=== PATIENT | male | born 1940 ===

== ENCOUNTER 2018-07-19 06:17 | Day surgery (SDC) | payer MEDICARE ==
[2018-07-18 11:49] VITALS: BMI 23.3
[2018-07-19 06:53] LABS: BASO # 0.05 K/mm3 (0.0-2.0); EOS # 0.1 (0.0-0.7); EOS % 2.1 % (1.5-5.0); GRAN # 2.84 (1.4-6.5); GRAN % 58.4 % (50.0-68.0); HEMOGLOBIN 13.7 g/dL (14.0-18.0); LYMPH # 1.4 (1.2-3.4); LYMPH % 28.6 % (22.0-35.0); MEAN CELL VOLUME 80.5 fl (80.0-105.0); MEAN CORPUSCULAR HGB CONC 36.1 g/dl (31.0-37.0); MONO # 0.5 (0.1-0.6); MONO % 9.9 % (1.0-6.0); RBC 4.72 10^6/uL (3.5-6.1); RED CELL DISTRIBUTION WIDTH 12.3 % (11.5-14.5); WHITE BLOOD COUNT 4.9 10^3/ul (4.5-11.0)
[2018-07-19 07:02] LABS: CALCIUM 9.1 mg/dL (8.4-10.5)
[2018-07-19] MEDS ORDERED: Propofol 10 mg/ml Inj (20 ML) ONE ×2 (09:10→09:27)
[2018-07-19] MEDS ORDERED: cefTRIAXone (Rocephin) 1 gm Inj ONE (09:21)
[2018-07-19] MEDS ORDERED: Lactated Ringer's 1,000 ML IV SCH (09:45)
[2018-07-19 10:41] VITALS: BP 133/74; PULSE 63; RESP 20; TEMP 98.3; O2SAT 100
--- NOTE | 2018-07-19 12:08 | CARD ---
APPROVED REPORT Date of service: 07/19/2018 EKG Measurement Heart [id number] <Conclusion> Normal sinus rhythm Left axis deviation Inferior infarct, age undetermined NSSTW changes
--- NOTE | 2018-07-20 11:30 | PN ---
Copied To: Bobby Lai MD Attending MD: Bobby Lai MD DATE: 07/19/2018 UROLOGY IMMEDIATE POSTOP NOTE SUBJECTIVE: See the history and physical and the operative note. The patient is in the hospital for an elevated PSA for prostate biopsy. In the immediate postop period, the patient's vital signs remained stable. He is in the same-day unit. He is status post a prostate ultrasound, prostate biopsy. Antibiotic prophylaxis used. The patient is doing well. The plan will be for outpatient management. We will send the patient home with analgesic, antibiotic and we will send him home with Flomax. Then, further plans will follow depending what shows. We described this to the patient in great length. We will plan to proceed. Bobby Lai MD
--- NOTE | 2018-07-21 08:10 | OP ---
Copied To: Bobby Lai MD Attending MD: Bobby Lai MD PROCEDURE DATE: 07/19/2018 UROLOGY OPERATIVE REPORT PREOPERATIVE DIAGNOSES: Elevated PSA, voiding dysfunction, decreased flow stream, nocturia. POSTOPERATIVE DIAGNOSES: Elevated PSA, voiding dysfunction, decreased flow stream, nocturia, irritative and obstructive urinary complaints. PROCEDURES: Ultrasound of prostate, ultrasound-guided prostate biopsy. SURGEON: Dr. Bobby Lai. COMPLICATIONS: There were no complications. BLOOD LOSS: Less than 10 mL. SPECIMEN SENT: Prostate cords, a total of 12 cords in the random quadrant, left base, left mid, left apex, right base, right mid, right apex, lateral, mediolateral medial. For ease of the nursing staff in two jars with 6 specimens in each one. There were no complications. The prostate volume was measured to be about 30 to 40 mL. There are some prostatic calcifications noted on the ultrasound. There are no specific hypoechoic lesions. The random biopsies are taken. INDICATIONS OF PROCEDURE: See history and physical for the details. A very pleasant gentleman, 77-year-old, presents with PSA of 15. We discussed options, we discussed doing an MRI, we discussed workup, we discussed observation. The patient is moving back to [facility] and want immediate treatment. So, we met the patient on 07/17/2018, we made arrangements for today, for 07/19/2018. We met him on 07/17/2018 in the evening hours and we actually did a repeat PSA, which I have been doubt for, the PSA was about 14 to 15 initially and in the repeat of the same number. So, we discussed the options and I would recommend proceeding with a biopsy. We did discuss an MRI. I explained to the patient, we can still do that, procedure. However, there would not be time to get all at this time before he moves and so therefore after discussing those options with the patient, he was brought in today for the above procedure and he is now on the table with PROCEDURE ITSELF: After obtaining informed consent, the patient was placed on the table. Routine monitors were placed. Time-outs were called to confirm . Antibiotic prophylaxis had been used. The patient was in decubitus position, probe inserted via the rectum, took pictures in transverse and longitudinal views. The volume measured to be about 30 to 40 mL. The printer did not print up. (In fact what I did was, I just took one picture on my camera just for documentation purposes because the printer is not printing). The procedure continued . I do not see any prostatic hypoechoic lesions. We do note the presence of some prostatic calcifications, all within normal limits for a patient of 77 years old. We now begin our random biopsies left base, left mid, left apex, right base, right mid, right apex. A total of 12 cords were sent out. Again, I sent them down in this particular hospital setting, a 12 specimen that were sent for two jars labeled left and right. Post biopsy records are within normal limits. The patient tolerated the procedure without complications. Bobby Lai MD
--- NOTE | 2018-07-21 08:10 | HP ---
Copied To: Bobby Lai MD Attending MD: Bobby Lai MD REASON FOR ADMISSION: Elevated PSA. HISTORY OF PRESENT ILLNESS: Mr. Jayce Johnson is a very pleasant gentleman with PSA of about 15, presented to my office on Tuesday evening on 07/17/2018, and today is 07/19/2018, and we are bringing him in for a biopsy. At the time, he is also planning to travel back to the [facility] and he wanted treatment as quickly as possible that we met him 07/17, in about 7:00 p.m. and he is here for now a biopsy. In the interim, we did review the blood test on Tuesday night on 07/17/2018, and we reviewed it and the PSA is still elevated at about 14, free and total are all here the chart. So after discussing options, the patient is here today for prostate ultrasound and biopsy (we did discuss the possibility for an MRI and we did discuss other options that available, observation, repeat exams). However, the patient wants treatments as quickly as possible. So we have two blood tests, both indicating the PSA is about 14 to 15 and I have been discussing the options here today for a prostate biopsy. He also has voiding complaints. He has 3 nocturia, moderate irritative and obstructive urinary complaints, that . So first we are going to address the elevated PSA and do a biopsy. We also discussing at the same time of starting the patient on Flomax. PAST MEDICAL AND SURGICAL HISTORY: As listed on the chart. No history of an [place] or CVA. SOCIAL HISTORY: Essentially unremarkable. is planning to move back to the [facility]. REVIEW OF SYSTEMS: As listed above. Noncontributory. No weight loss, chest pain, shortness of breath, or the like. No major constitutional complaints. MEDICATIONS: See the chart. ALLERGIES: SEE THE CHART. PHYSICAL EXAMINATION GENERAL: A well-nourished male, in no apparent distress. VITAL SIGNS: Within normal limits included in the chart. LUNGS: Clear. HEART: Normal S1 and S2. ABDOMEN: Overall soft, nontender. LYMPHATICS: No cervical or axillary lymphadenopathy. PELVIC: No metastasis. No testicular masses. RECTAL: A 20 to 30 g prostate, soft and smooth. LABORATORY DATA: See chart. In summary, a very pleasant 77-year-old gentleman who is here with an elevated PSA and voiding dysfunction. He has both irritative and obstructive complaints and his PSA is 14 to 15, a repeat with the same number, total and free are elevated. They are on the chart. We discussed with the patient the risks, benefits, and alternatives and discussed the risks of not doing a biopsy, discussed the risks of doing a biopsy, infection, bleeding, etc. All these are discussed at length. From urology standpoint, plan as follows; 1. Antibiotics prophylaxis. 2. An ultrasound of prostate. 3. An ultrasound-guided prostate biopsy. Then, further plans will follow. Again, the patient is looking for as immediate as possible treatment. So I have already made arrangements for followup. Again, we met the patient on 07/17, now is 07/19. We are planning for come the patient back to the office 07/24, is a holiday and I just offered the patient to come back on 07/25. He wants to await until 07/26, so we made arrangement for outpatient followup on 07/26, back in the office. Bobby Lai MD
== END 2018-07-19 11:45 | disposition home or self-care (01) ==
LOC: SDS 06:17
PROVIDERS: ATTEND Urology
DX: R39.198 Other difficulties with micturition (principal); R35.1 Nocturia; R97.20 Elevated prostate specific antigen [PSA]
CPT/HCPCS: 36415; 55700; 80048; 85025; 88305; 93005; J0696; J2704; J3010; J7120 ×2